=== PATIENT | male | born 1955 | race Caucasian/White ===

== ENCOUNTER 2016-06-14 19:11 | Emergency (ER) | payer BC ==
[~2016-06-14] VITALS: Ht 175.3 cm; Wt 97.5 kg
--- NOTE | 2016-06-14 19:11 | NUR ---
BIB [facility] TO ER OF1
[2016-06-14 19:24] VITALS: BP 156/64
--- NOTE | 2016-06-14 19:30 | NUR ---
PT IS 60/M BIB [facility] TO ED FOR PRE BOOK. PT STATES MED HX OF HTN AND DM. DENIES N/V/D; SKIN IS PINK/WARM/DRY; AAOX4 WITH EVEN AND STEADY GAIT; LUNGS CLEAR BL; HR EVEN AND REGULAR; PT DENIES ANY FEVER, CP, SOB, OR COUGH AT THIS TIME; PATIENT STATES PAIN OF 0/10 AT THIS TIME; VSS; PATIENT POSITIONED FOR COMFORT; HOB ELEVATED; BEDRAILS UP X2; BED DOWN. ER MD MADE AWARE OF PT STATUS.
[2016-06-14 20:21] VITALS: BP 148/62
--- NOTE | 2016-06-14 20:21 | NUR ---
PATIENT BIB [facility]. PATIENT EXAMINED BY DR. TURNER. PATIENT MEDICALLY CLEARED AND RELEASED IN CUSTODY IN STABLE CONDITION. ORIGINAL PRE-BOOK FORM GIVEN TO OFFICER OFFICER [facility] #[id number].
== END 2016-06-14 20:21 ==
LOC: MED 19:11
DX: Z02.89 Encounter for other administrative examinations (principal); I10 Essential (primary) hypertension; E11.9 Type 2 diabetes mellitus without complications; V49.9XXA Car occupant (driver) (passenger) injured in unspecified traffic accident, initial encounter; Y93.89 Activity, other specified; Y92.89 Other specified places as the place of occurrence of the external cause; Y99.8 Other external cause status
CPT/HCPCS: 99283